=== PATIENT | female | born 1975 | race African-American/Black ===

== ENCOUNTER 2021-12-16 16:55 | Emergency (ER) | payer OTHER ==
[~2021-12-16] VITALS: Ht 162.5 cm; Wt 143.8 kg
== END 2021-12-16 20:04 | disposition home or self-care (01) ==
LOC: ED 16:55
DX: S70.01XA Contusion of right hip, initial encounter (principal); S80.01XA Contusion of right knee, initial encounter; S81.811A Laceration without foreign body, right lower leg, initial encounter; Z91.041 Radiographic dye allergy status; Z88.6 Allergy status to analgesic agent; Z88.8 Allergy status to other drugs, medicaments and biological substances; W06.XXXA Fall from bed, initial encounter; Y93.89 Activity, other specified; Y92.89 Other specified places as the place of occurrence of the external cause; Y99.8 Other external cause status